=== PATIENT | male | born 1955 | race African-American/Black ===

== ENCOUNTER 2018-05-22 13:19 | Inpatient (IN) | payer OTHER ==
[~2018-05-22] VITALS: Ht 170.2 cm; Wt 99.4 kg
[~2018-05-22 13:19] MED LIST: AUGMENTIN 875-1 EACH PO; LOPRESSOR PO; MAG-OXIDE400 MG PO; NORCO 5-325 TA1 EACH PO; NORVASC 5 MG TAB5 MG PO; OMEPRAZOLE PO; ONDANSETRON HCL4 M2 PO; TESSALON PERLE100 MG PO
[2018-05-22 13:20] VITALS: BP 117/88
[2018-05-22 13:54] LABS: URINE CLARITY DARK YELLOW; URINE COLOR YELLOW; URINE SPECIFIC GRAVITY 1.025 (1.005-1.035)
[2018-05-22 13:55] LABS: ICTOTEST (BILI CONFIRMATORY) Negative (Negative); URINE BILIRUBIN NEGATIVE (Negative); URINE BLOOD NEGATIVE (Negative); URINE GLUCOSE-RANDOM* TRACE (Negative); URINE KETONES TRACE (Negative); URINE LEUKOCYTES-REFLEX NEGATIVE (Negative); URINE NITRITE-REFLEX NEGATIVE (Negative); URINE PROTEIN (DIPSTICK) 2+ (Negative); URINE UROBILINOGEN >= 8.0 E.U./dl (0.2-1.0)
[2018-05-22 14:01] LABS: SQUAMOUS 0-3 Few /LPF (0-3)
[2018-05-22 14:02] LABS: AMORPHOUS URATES Few /LPF (None Seen); BACTERIA-REFLEX 1-9 Few /HPF (None Seen); CASTS None Seen /LPF (None Seen); URINE RBC None Seen /HPF (0-2); URINE WBC-REFLEX 0-5 Rare /HPF (0-5)
[2018-05-22 14:05] LABS: ABSOLUTE NEUTROPHILS 5.7 thou/uL (1.4-8.2); BASOPHILS 0.9 % (0.0-2.0); EOSINOPHILS 0.9 % (0.0-3.0); HEMATOCRIT 39.3 % (42.0-52.0); HEMOGLOBIN 13.3 gm/dL (14.0-18.0); LYMPHOCYTES 33.1 % (24.0-44.0); MCH 31.5 pg (26.0-34.0); MCHC 33.9 g/dL (28.0-37.0); MCV 92.7 fL (80.0-100.0); MONOCYTES 6.6 % (1.0-8.0); PLATELET COUNT 211 thou/uL (150-400); POLYS 58.5 % (36.0-66.0); RBC 4.24 mil/uL (4.50-6.00); RDW 13.9 % (10.5-14.5); WBC 9.8 thou/uL (4.0-11.0)
[2018-05-22 14:10] LABS: ANION GAP 13 mmol/L (7-16); BUN 13 mg/dL (7-18); CHLORIDE 103 mmol/L (98-107); CO2 26 mmol/L (21-32); CREATININE 1.2 mg/dL (0.7-1.3); GLUCOSE 120 mg/dL (74-106); SODIUM 142 mmol/L (136-145)
[2018-05-22 14:13] LABS: CALCIUM 5.7 mg/dL (8.5-10.1); POTASSIUM 2.9 mmol/L (3.5-5.1)
[2018-05-22 14:19] LABS: DIRECT BILIRUBIN 0.4 mg/dL (<0.1-0.3); SGOT 25 U/L (15-37); SGPT 27 U/L (30-65); TOTAL BILIRUBIN 1.7 mg/dL (<0.1-1.0); TROPONIN-I <0.06 ng/mL (<0.06)
[2018-05-22 15:20] VITALS: BP 112/88
[2018-05-22 15:41] VITALS: BP 113/86
[2018-05-22 15:59] LABS: CHOLESTEROL 173 mg/dL (<200); HDL CHOLESTEROL 38 mg/dL (>40); LDL CHOLESTEROL 124 mg/dL (<100); TC:HDL 4.6 Ratio (Not establshd); TRIGLYCERIDE 56 mg/dL (<150); VLDL 11 mg/dL (<40)
[2018-05-22 16:00] VITALS: BP 107/90
[2018-05-22 19:45] LABS: POTASSIUM 2.6 mmol/L (3.5-5.1)
[2018-05-22 19:46] LABS: MAGNESIUM 0.7 mg/dL (1.8-2.4)
[2018-05-22 20:33] VITALS: BP 133/90
[2018-05-23] VITALS (8 sets, daily range): BP systolic 98–132; BP diastolic 70–90
[2018-05-23 02:15] LABS: CREATININE 1.1 mg/dL (0.7-1.3); MAGNESIUM 1.7 mg/dL (1.8-2.4); POTASSIUM 3.5 mmol/L (3.5-5.1)
[2018-05-23 07:41] LABS: CALCIUM 6.2 mg/dL (8.5-10.1); CREATININE 1.1 mg/dL (0.7-1.3); MAGNESIUM 1.5 mg/dL (1.8-2.4); POTASSIUM 3.2 mmol/L (3.5-5.1)
--- NOTE | 2018-05-23 08:49 | EKG ---
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 : 1955 Requested By: Jadiel Rhoades Order Number: [id number] MD: Juan David Singh Measurements Intervals [place] Rate: 133 P: [place]: QRS: -40 QRSD: 83 T: -69 QT: 357 QTc: 532 Interpretive Statements Atrial fibrillation Left anterior fascicular block Abnormal T, consider ischemia, diffuse leads Compared to ECG 03/01/2016 22:46:[address] and T wave abnormality is new atrial fibrillation has replaced sinus rhythm Electronically Signed On 05-23-2018 8:49:26 PRINCIPAL TRAINER by Juan David Singh [email or web address] <ELECTRONICALLY SIGNED> By: Juan David Singh MD, [facility] 05/23/18 0849 1355 1355 Juan David Singh MD, [facility] /EPI
[2018-05-23 13:15] LABS: MAGNESIUM 1.5 mg/dL (1.8-2.4); POTASSIUM 3.7 mmol/L (3.5-5.1)
[2018-05-23 13:23] LABS: CALCIUM 6.3 mg/dL (8.5-10.1); CREATININE 1.2 mg/dL (0.7-1.3); PHOSPHORUS 2.8 mg/dL (2.5-4.9)
[2018-05-24 04:13] VITALS: BP 114/95
[2018-05-24 04:38] LABS: CALCIUM 6.7 mg/dL (8.5-10.1); DIRECT BILIRUBIN 0.4 mg/dL (<0.1-0.3); PHOSPHORUS 2.8 mg/dL (2.5-4.9); POTASSIUM 4.2 mmol/L (3.5-5.1); TOTAL BILIRUBIN 1.9 mg/dL (<0.1-1.0); TOTAL PROTEIN 6.5 g/dL (6.4-8.2)
[2018-05-24 07:15] VITALS: BP 123/86
[2018-05-24 08:34] VITALS: BP 123/86
[2018-05-24 16:23] VITALS: BP 139/96
[2018-05-24 19:18] VITALS: BP 132/91
[2018-05-24 23:48] VITALS: BP 141/96
[2018-05-25 04:21] LABS: CALCIUM 7.5 mg/dL (8.5-10.1)
[2018-05-25 04:36] VITALS: BP 117/81
[2018-05-25 04:49] LABS: ABSOLUTE NEUTROPHILS 7.1 thou/uL (1.4-8.2); BASOPHILS 0.7 % (0.0-2.0); EOSINOPHILS 1.3 % (0.0-3.0); HEMOGLOBIN 13.6 gm/dL (14.0-18.0); LYMPHOCYTES 19.2 % (24.0-44.0); MCH 32.4 pg (26.0-34.0); MCHC 34.1 g/dL (28.0-37.0); MCV 95.1 fL (80.0-100.0); MONOCYTES 7.2 % (1.0-8.0); PLATELET COUNT 218 thou/uL (150-400); POLYS 71.6 % (36.0-66.0); RBC 4.21 mil/uL (4.50-6.00); WBC 9.9 thou/uL (4.0-11.0)
[2018-05-25 06:02] LABS: LARGE PLATELETS FEW
--- NOTE | 2018-05-25 14:53 | CATHLAB ---
[facility] [address] [place] [address] INVASIVE PROCEDURE REPORT Name: CHESTER HOFFMAN Room #: 213-P ADM IN M.R.#: [id number] Admission: 05/22/18 Attend Phys: Ian Samano Discharge: Date of : 53 Date of Service: 05/25/18 1452 Report #: [id number] THIS REPORT FOR: //name// APPROVED REPORT Study performed: 05/25/2018 08:09:04 Patient Details Patient Status: In-Patient Room #: The patient is a 63 year-old male Event Personnel Frank Cardozo Asphalt Blender, Ro Gore RN RN, Sana Guzman RT(R)() Rogelio Harley Roberta Monitor Procedures Performed Art Access - R femoral artery* 61707 Initial Mod Sed Same Phys/QHP Gr5y 053506 38306 Mod Sed Same Phys/QHP Ea 982696 Left Heart Cath w/or w/o Coronaries [id number] LHC BMS Revasc Grafts Single RCA [id number] BMREVSVGSG Hemostasis w/ Mynx Indication Atrial fibrillation, Dyspnea, CardiomyopathyPositive stress test Risk Factors Hypercholesterolemia, Hypertension, Tobacco History () Procedure Narrative The Right Groin^ was infiltrated with 1% Lidocaine subcutaneous anesthesia. A PINNACLE 4FR Sheath #[id number] sheath was inserted into the . Coronary angiography was performed using coronary diagnostic catheters. The right coronary system was accessed and visualized with a JR4 catheter. The left coronary system was accessed and visualized with a 4FR JL 5.0 #[id number] catheter. The left ventricle was accessed and visualized with a ANGLE PIG catheter. Left ventriculogram was performed in 30 degree projection. There was no hematoma. Intraoperative Conscious Sedation Sedation start time: 814 Case end Time: 919 [facility] [address] [place] [address] INVASIVE PROCEDURE REPORT Name: YASMINCHESTER Room #: 213-P [facility] IN ..#: [id number] Admission: 05/22/18 Attend Phys: Ian Samano Discharge: Date of : 53 Date of Service: 05/25/18 1452 Report #: [id number] Fentanyl 50.0 mcg Versed 1 mg Fluoro Time: 11.35 minutes Dose: DAP 93205.20 cGycm2 1804 mGy Contrast Type and Amount: Omnipaque 155 ml Coronary Angiography The patient's coronary anatomy is right dominant. Diagnostic Cath Left Main This is a patent vessel, with no flow-limiting lesions. LAD This is a moderate size caliber vessel, traversing the anterior wall and wrapping around the apex. There is a mild to moderate stenosis in the mid segment, 30-40%. Diagonal 1 This is a small-caliber vessel, with mild to moderate disease in the proximal segment, 30-40%. Diagonal 2 This is a small-caliber vessel, with mild disease proximally. Circumflex This is a moderate size caliber vessel, with a moderate stenosis in the proximal segment, 50%. OM1 This is a patent vessel, with no flow-limiting lesions. OM2 This is a small-caliber vessel, with moderate diffuse disease. Right Coronary This is a dominant vessel with severe focal lesions in the proximal and mid segments. R PDA This is a patent vessel, with no flow-limiting lesions. RPLV This is a patent vessel, with no flow-limiting lesions. Left Ventriculography The left ventricle is mildly dilated in size with decreased contractility. The left ventricular ejection fraction is estimated to be 35-40%. Hemodynamics The aortic pressure is 121/88 mmHg with a mean of 97 mmHg. The left ventricular pressure is 113/25 mmHg with a mean of mmHg. The left ventricular end diastolic pressure is 30 mmHg. PCI Technique Lesion Percutaneous coronary intervention was performed on the mid right coronary artery. The lesion stenosis prior to intervention was 85% with BOBO 3 flow. A VISTA 6FR JR 4 [place] [id number] INVASIVE PROCEDURE REPORT Name: CHESTER HOFFMAN Room #: 213-P [facility] IN ..#: [id number] Admission: 05/22/18 Attend Phys: Ian Samano Discharge: Date of : 53 Date of Service: 05/25/18 1452 Report #: [id number] #[id number] Guide Catheter was used to engage the RCA ostium. A Luge Wire .014 x 182CM #[id number] Interventional Guidewire was used to cross the lesion. BALLOON DILATION A Balloon catheter Euphora RX 2.5 x 10 #[id number] was inserted and inflated up to 12.00atm for 24seconds. Additional Inflation: 14.00atm for 20seconds. Additional Inflation: 8.00atm for 7seconds. SCRUM MASTER OF MRCA DRCA PRCA STENT DEPLOYMENT A bare metal stent INTEGRITY OTW 2.75 X 14 #[id number] was inserted and inflated up to 14.00atm for 16seconds. Repeat angiography revealed the following post-stent deployment results: THIS BMS WAS PLACED IN THE Distal RCA. 2ND BMS was placed in the mid segment of the RCA. 3.4YNX08PA DEPLOYED AT 18ATM FOR 22 SEC. 3RD BMS IN THE proximal RCA INTEGRITY 3.5X15MM 18ATM FOR 17 SEC. Final angiography reveals 0 % stenosis with BOBO 3 flow. Conclusion 1. Successful placement of 3 bare metal stents into the proximal, mid and distal segments of the RCA. 2. Mild to moderate disease in the LAD and left circumflex arteries. 3. At least moderate global cardiomyopathy. 4. Recommend aggressive risk factor management, cessation of tobacco use and antiplatelet therapy. <ELECTRONICALLY SIGNED> By: Frank Cardozo MD 05/25/181451 51 51 Frank Cardozo MD /INF
[2018-05-25 15:58] VITALS: BP 105/74
[2018-05-25 20:39] VITALS: BP 148/99
[2018-05-25 23:59] VITALS: BP 133/99
[2018-05-26 03:23] LABS: ALBUMIN 2.9 g/dL (3.4-5.0); ANION GAP 8 mmol/L (7-16); BUN 9 mg/dL (7-18); CALCIUM 8.5 mg/dL (8.5-10.1); CHLORIDE 103 mmol/L (98-107); CO2 22 mmol/L (21-32); GLUCOSE 109 mg/dL (74-106); HEMATOCRIT 41.9 % (42.0-52.0); HEMOGLOBIN 13.8 gm/dL (14.0-18.0); MCH 31.5 pg (26.0-34.0); MCV 95.5 fL (80.0-100.0); POTASSIUM 4.6 mmol/L (3.5-5.1); RBC 4.38 mil/uL (4.50-6.00); RDW 14.1 % (10.5-14.5); SGOT 17 U/L (15-37); SGPT 19 U/L (30-65); SODIUM 133 mmol/L (136-145); TOTAL BILIRUBIN 1.6 mg/dL (<0.1-1.0); TOTAL PROTEIN 7.1 g/dL (6.4-8.2); TROPONIN-I <0.06 ng/mL (<0.06); WBC 10.2 thou/uL (4.0-11.0)
[2018-05-26 04:19] VITALS: BP 129/107
--- NOTE | 2018-05-26 04:57 | EKG ---
[place] [address] [facility] [place] [address] ELECTROCARDIOGRAM REPORT Name: NORM HOFFMANOD Room #: 213-P ADM IN M.R.#: [id number] Admission: 05/22/18 Attend Phys: Ian James Discharge: Date of : 53 Report #: [id number] THIS REPORT FOR: //name// [facility] Test Date: 2018-05-25 Test Time: 10:48:02 Pat Name: CHESTER HOFFMAN Department: Room: 213 P Gender: M Direct Support Staff Member: Ev CROUCH : 1955 Requested By: Frank Cardozo Order Number: [id number] MD: Cash Clark Measurements Intervals [place] Rate: 94 P: [place]: QRS: -31 QRSD: 77 T: -78 QT: 425 QTc: 532 Interpretive Statements Atrial fibrillation Ventricular premature complex vs Kei beat Left axis deviation Non specific ST/T wave abnormalities Compared to ECG 05/22/2018 13:55:39 Ventricular premature complex(es) now present Electronically Signed On 05-26-2018 4:57:24 MILK ROUTE SUPERVISOR by Cash Clark [email or web address] <ELECTRONICALLY SIGNED> By: Cash Clark MD 05/26/18 0457 1048 1048 Cash Clark MD /EPI
[2018-05-26] MEDS ORDERED: ADULT ASPIRIN R81 MG PO (08:38)
--- NOTE | 2018-05-27 16:23 | 2DMMODE ---
[facility] [place] [address] 2 D/M-MODE ECHOCARDIOGRAM Name: CHESTER HOFFMAN Room #: 213-P [facility] IN M.R.#: [id number] Admission: 05/22/18 Attend Phys: Ian Samano Discharge: 05/26/18 Date of : 53 Date of Service: 05/23/18 1109 Report #: [id number] THIS REPORT FOR: //name// EXAM: Comprehensive 2D, Doppler, and color-flow Echocardiogram Patient Location: Echo lab Room #: 213 Status: routine BSA: 2.19 HR: 93 bpm BP: 114/77 mmHg Rhythm: Atrial Fibrillation Other Information Study Quality: Good Indications Atrial Fibrillation Hx: HTN, Tobacco and ETOH abuse. 2D Dimensions RVDd: 41.20 mm IVSd: 10.52 (7-11mm) LVOT Diam: 20.94 (18-24mm) LVDd: 55.07 mm PWd: 10.96 (7-11mm) Ascending Ao: 35.75 (22-36mm) LVDs: 44.58 (25-40mm) Aortic Root: 39.23 mm Volumes Left Atrial Volume (Systole) Single Plane 4CH: 84.03 mL Single Plane 2CH: 89.83 mL LA ESV Index: 42.00 mL/m2 Aortic Valve AoV Peak Brandan.: 0.98 m/s AO Peak Gr.: 4.14 mmHg LVOT Max P.74 mmHg LVOT Max V: 0.82 m/s JAZMÍN Vmax: 2.87 cm2 Mitral Valve MV Decel. Time: 171.12 ms MV E Max Brandan.: 0.90 m/s Pulmonary Valve PV Peak Brandan.: 0.73 m/s PV Peak Gr.: 2.16 mmHg Tricuspid Valve TR Peak Brandan.: 2.54 m/s RAP Estimate: 10.00 mmHg TR Peak Gr.: 25.95 mmHg [facility] [address] [place] [place] [address] 2 D/M-MODE ECHOCARDIOGRAM Name: CHESTER HOFFMAN Room #: 213-P [facility] IN M.R.#: [id number] Admission: 05/22/18 Attend Phys: Ian Samano Discharge: 05/26/18 Date of : 53 Date of Service: 05/23/18 1109 Report #: [id number] PA Pressure: 36.00 mmHg Left Ventricle The left ventricle is normal size. There is normal left ventricular wall thickness. Left ventricular systolic function is mild to moderately decreased. LVEF is 40-45%. This study is not technically sufficient to allow evaluation of the LV diastolic function due to atrial fibrillation. Right Ventricle The right ventricle is normal size. Right ventricular systolic function is mild to moderately reduced. Atria Left atrium is moderately dilated. Right atrium is moderately dilated. Aortic Valve The aortic valve is normal in structure. Mild aortic regurgitation. There is no aortic valvular stenosis. Mitral Valve The mitral valve is normal in structure. Moderate mitral regurgitation. Tricuspid Valve The tricuspid valve is normal in structure. Moderate tricuspid regurgitation. Estimated PAP 35-40mmHg. Pulmonic Valve The pulmonary valve is normal in structure. Mild to moderate pulmonic regurgitation. Great Vessels Aortic root is mildly dilated at 3.9cm. The ascending aorta is normal in size. IVC is dilated and collapses <50% with inspiration. Pericardium There is no pericardial effusion. <Conclusion> Left ventricular systolic function is mild to moderately decreased. LVEF is 40-45%. Both atria are moderately dilated. The aortic valve is normal in structure. Mild aortic regurgitation, no stenosis The mitral valve is normal in structure. Moderate mitral regurgitation. Moderate tricuspid regurgitation. Estimated pulmonary artery pressure of [facility] [address] [place] [address] 2 D/M-MODE ECHOCARDIOGRAM Name: CHESTER HOFFMAN Room #: 213-P [facility] IN M.R.#: [id number] Admission: 05/22/18 Attend Phys: Ian Samano Discharge: 05/26/18 Date of : 53 Date of Service: 05/23/18 1109 Report #: [id number] 35-40mmHg. There is no pericardial effusion. <ELECTRONICALLY SIGNED> By: Juan David Singh MD, [facility] 05/27/18 1623 1109 0842 Juan David Singh MD, [facility] /
== END 2018-05-26 06:00 | disposition home or self-care (01) | DRG 248 ==
LOC: ER 13:19 → EROBS 15:13 → 2N 15:13
PROVIDERS: Emergency Medicine; Internal Medicine Cardiovascular Disease; Nurse Practitioner; Nurse Practitioner Acute Care; ADMIT Hospitalist
PROC: B2111ZZ Fluoroscopy of Multiple Coronary Arteries using Low Osmolar Contrast (ICD-10-PCS; principal; 2018-05-25)
PROC: 02703FZ Dilation of Coronary Artery, One Artery with Three Intraluminal Devices, Percutaneous Approach (ICD-10-PCS; principal; 2018-05-25)
PROC: B2151ZZ Fluoroscopy of Left Heart using Low Osmolar Contrast (ICD-10-PCS; principal; 2018-05-25)
PROC: 4A023N7 Measurement of Cardiac Sampling and Pressure, Left Heart, Percutaneous Approach (ICD-10-PCS; principal; 2018-05-25)
DX: I25.10 Atherosclerotic heart disease of native coronary artery without angina pectoris (principal); E43 Unspecified severe protein-calorie malnutrition; I42.9 Cardiomyopathy, unspecified; E87.8 Other disorders of electrolyte and fluid balance, not elsewhere classified; I10 Essential (primary) hypertension; E87.6 Hypokalemia; I48.91 Unspecified atrial fibrillation; E83.51 Hypocalcemia; E83.42 Hypomagnesemia; F17.210 Nicotine dependence, cigarettes, uncomplicated; K21.9 Gastro-esophageal reflux disease without esophagitis; Z53.21 Procedure and treatment not carried out due to patient leaving prior to being seen by health care provider; K31.84 Gastroparesis; Z90.81 Acquired absence of spleen; Z90.49 Acquired absence of other specified parts of digestive tract; Z68.34 Body mass index [BMI] 34.0-34.9, adult; Z80.0 Family history of malignant neoplasm of digestive organs; Z71.6 Tobacco abuse counseling; Z95.5 Presence of coronary angioplasty implant and graft
CPT/HCPCS: 10081

== ENCOUNTER 2018-08-17 02:45 | Inpatient (IN) | payer OTHER ==
[2018-08-17] VITALS (7 sets, daily range): BP systolic 106–153; BP diastolic 72–98
[~2018-08-17] VITALS: Ht 180.3 cm; Wt 96.2 kg
[~2018-08-17 02:45] MED LIST changes: +ADULT ASPIRIN R81 MG PO
[2018-08-17 03:18] LABS: ABSOLUTE NEUTROPHILS 5.3 thou/uL (1.4-8.2); EOSINOPHILS 1.7 % (0.0-3.0); HEMATOCRIT 40.3 % (42.0-52.0); HEMOGLOBIN 13.5 gm/dL (14.0-18.0); LYMPHOCYTES 43.8 % (24.0-44.0); MCH 30.3 pg (26.0-34.0); MCHC 33.6 g/dL (28.0-37.0); MCV 90.2 fL (80.0-100.0); MONOCYTES 6.1 % (1.0-8.0); PLATELET COUNT 206 thou/uL (150-400); POLYS 47.4 % (36.0-66.0); RBC 4.46 mil/uL (4.50-6.00); RDW 14.8 % (10.5-14.5); WBC 12.1 thou/uL (4.0-11.0)
[2018-08-17 03:24] LABS: ANION GAP 13 mmol/L (7-16); BUN 12 mg/dL (7-18); CALCIUM 6.4 mg/dL (8.5-10.1); CHLORIDE 102 mmol/L (98-107); CO2 25 mmol/L (21-32); CREATININE 1.4 mg/dL (0.7-1.3); GLUCOSE 121 mg/dL (74-106); POTASSIUM 3.3 mmol/L (3.5-5.1); SODIUM 140 mmol/L (136-145)
[2018-08-17 03:32] LABS: TROPONIN-I <0.06 ng/mL (<0.06)
[2018-08-17] MEDS ORDERED: ELIQUIS5 MG PO (03:58)
[2018-08-17] MEDS ORDERED: ATENOLOL 50MG T50 M1 PO (03:58)
--- NOTE | 2018-08-17 05:55 | NUR ---
PT ADMITED AROUND 0500 FROM ER. VSS- AFIB ON MONITOR 80-LOW 100'S CARDIZEM GTT @10 ML/HR TITRATE PER ORDERS. MAG AND POT REPLACEMENT PER ORDERS. PT STEADY ON FEET. DENIES CP, SOA, DIZZINESS, N/V. WILL CONTINUE TO MONITOR AND WITH POC.
[2018-08-17 11:03] LABS: MAGNESIUM 1.6 mg/dL (1.8-2.4); POTASSIUM 3.9 mmol/L (3.5-5.1)
--- NOTE | 2018-08-17 12:04 | 2DMMODE ---
[facility] [address] [place] [address] 2 D/M-MODE ECHOCARDIOGRAM Name: CHESTER HOFFMAN Room #: 207-P ADM IN M.R.#: [id number] ������������� Admission: 08/17/18 ������������� Attend Phys: Ruel Enamorado MD Discharge: ��� ������������� ��� Date of : 53 Date of Service: 08/17/18 1204 �� Report #: [id number] �������� ��������������������������������������������[id number] THIS REPORT FOR: //name// APPROVED REPORT Study performed: 08/17/2018 11:21:46 EXAM: Comprehensive 2D, Doppler, and color-flow Echocardiogram Patient Location: Bedside Room #: 207 Status: routine BSA: 2.16 HR: 67 bpm BP: 113/86 mmHg Rhythm: Atrial Fibrillation Other Information Study Quality: Good Indications Atrial Fibrillation CAD Cardiomyopathy Hypertension/HDD 2D Dimensions RVDd: 48.39 mm IVSd: 13.01 (7-11mm) LVOT Diam: 19.84 (18-24mm) LVDd: 59.21 mm PWd: 13.43 (7-11mm) Ascending Ao: 30.49 (22-36mm) LVDs: 52.39 (25-40mm) Aortic Root: 36.11 mm IVC: 30.00 mm Volumes Left Atrial Volume (Systole) Single Plane 4CH: 64.54 mL Single Plane 2CH: 90.77 mL LA ESV Index: 40.00 mL/m2 Aortic Valve AoV Peak Brandan.: 0.98 m/s AO Peak Gr.: 3.85 mmHg LVOT Max P.63 mmHg LVOT Max V: 0.64 m/s JAZMÍN Vmax: 2.01 cm2 Pulmonary Valve [facility] [address] [place] [address] 2 D/M-MODE ECHOCARDIOGRAM Name: CHESTER HOFFMAN Room #: 207-P ADM IN Noel.#: [id number] ������������� Admission: 08/17/18 ������������� Attend Phys: Ruel Enamorado MD Discharge: ��� ������������� ��� Date of : 53 Date of Service: 08/17/18 1204 �� Report #: [id number] �������� ��������������������������������������������[id number] PV Peak Brandan.: 0.59 m/s PV Peak Gr.: 1.39 mmHg Tricuspid Valve TR Peak Brandan.: 2.81 m/s TR Peak Gr.: 31.52 mmHg PA Pressure: 47.00 mmHg Left Ventricle Left ventricle is dilated. There is severe global hypokinesis of the left ventricle. Mild concentric left ventricular hypertrophy. Left ventricular ejection fraction is severely decreased. LVEF is 20-25%. The left ventricular diastolic function is abnormal. Right Ventricle Right ventricle is dilated. Right ventricle is mildly hypokinetic. Atria Left atrium is dilated. Right atrium is dilated. Aortic Valve The aortic valve is normal in structure. Mild aortic regurgitation. There is no aortic valvular stenosis. Mitral Valve The mitral valve is normal in structure. Moderate mitral regurgitation. No evidence of mitral valve stenosis. Tricuspid Valve The tricuspid valve is normal in structure. There is mild to moderate tricuspid regurgitation. Estimated PAP 47 mmHg. There is moderate pulmonary hypertension. Pulmonic Valve The pulmonary valve is normal in structure. Mild to moderate pulmonic regurgitation. Great Vessels The aortic root is normal in size. The inferior vena cava is dilated with no inspiratory collapse. Pericardium There is no pericardial effusion. <Conclusion> Left ventricle is dilated. [facility] [address] [place] [address] 2 D/M-MODE ECHOCARDIOGRAM Name: CHESTER HOFFMAN Room #: 207- ADM IN .R.#: [id number] ������������� Admission: 08/17/18 ������������� Attend Phys: Ruel Enamorado MD Discharge: ��� ������������� ��� Date of : 53 Date of Service: 08/17/18 120 �� Report #: [id number] �������� ��������������������������������������������[id number] Mild concentric left ventricular hypertrophy. Left ventricular ejection fraction is severely decreased. Right ventricle is dilated. Right ventricle is mildly hypokinetic. Left atrium is dilated. Right atrium is dilated. Mild aortic regurgitation. Moderate mitral regurgitation. There is mild to moderate tricuspid regurgitation. Estimated PAP 47 mmHg. There is moderate pulmonary hypertension. ��������������������������������������������� <ELECTRONICALLY SIGNED> ���������������������������������������� By: Frank Cardozo MD ��������������������������������������������� 08/17/18 1204 120 1204 Frank Cardozo MD /INF
--- NOTE | 2018-08-17 15:49 | NUR ---
VSS REMAINS IN AFIB WITH VR 80-105, PT OFF CARDIZEM GTT AND ON PO ATENOLOL FOR TODAY. LUNGS DIMINISHED, O2 SAT RA IS 95%. UP IN ROOM WITHOUT DIFFICULTY. WILL CONTINUE TO MONITER AND CARE FOR PTPER PLAN OF CARE
[2018-08-18 00:45] VITALS: BP 104/90
[2018-08-18 03:46] LABS: HEMOGLOBIN 12.4 gm/dL (14.0-18.0); MCH 30.4 pg (26.0-34.0); MCHC 33.6 g/dL (28.0-37.0); MCV 90.5 fL (80.0-100.0); RBC 4.09 mil/uL (4.50-6.00); RDW 14.7 % (10.5-14.5); WBC 9.9 thou/uL (4.0-11.0)
[2018-08-18 03:57] LABS: CALCIUM 7.1 mg/dL (8.5-10.1); CREATININE 1.3 mg/dL (0.7-1.3); POTASSIUM 3.5 mmol/L (3.5-5.1)
--- NOTE | 2018-08-18 04:36 | NUR ---
ASSUMED PT CARE AT 1900. PT A/OX4, VITAL SIGNS STABLE, ASSESSMENT CHARTED NO COMPLAINTS OF PAIN/CHEST PAIN. AFIB ON THE MONITOR. HR ELEVATED WITH ACTIVITY. RESTED WELL THROUGH THE NIGHT. PROGRESSING TOWARD PLAN OF CARE. WILL CONTINUE TO MONITOR.
[2018-08-18 04:45] VITALS: BP 124/89
[2018-08-18 08:00] VITALS: BP 128/98
--- NOTE | 2018-08-18 09:31 | EKG ---
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: TIFFANY : 1955 Requested By: Jadiel Rhoades Order Number: [id number] MD: Juan David Singh Measurements Intervals [place] Rate: 119 P: [place]: QRS: -41 QRSD: 94 T: 259 QT: 365 QTc: 514 Interpretive Statements Atrial fibrillation Left anterior fascicular block Left ventricular hypertrophy Abnormal T, consider ischemia, lateral leads Prolonged QT interval Compared to ECG 05/25/2018 10:48:02 T wave abnormality is less pronounced Electronically Signed On 08-18-2018 9:31:13 CDT by Juan David Singh [email or web address] ��������������������������������������������� <ELECTRONICALLY SIGNED> ���������������������������������������� By: Juan David Singh MD, [facility] ��������������������������������������������� 08/18/18 0931 0313 0313 Juan David Singh MD, [facility] /EPI
[2018-08-18 12:09] VITALS: BP 127/76
[2018-08-18 16:00] VITALS: BP 138/87
--- NOTE | 2018-08-18 19:25 | NUR ---
ASSUMED CARE OF PT AT SHIFT CHANGE. ASSESSMENTS CHARTED. MEDS GIVEN PER JUN. PT ALERT AND ORIENTED, VSS, NO C/O PAIN. DENIES CHEST PAIN. PT UP AD ABEL. O2 SATS WNL ON ROOM AIR, NO S/SX OF CARD OR RESP DISTRESS NOTED. AT APPROX [id number] PT WENT INTO AFIB/RVR. PROVIDER NOTIFIED. ORDERS RECEIVED TO RESTART DILT GTT AT 10, AND TO TITRATE ACCORDINGLY, WELL AMIO PO. PT HR BEGAN TO DECREASE, EVENTUALLY RETURNING BACK TO 90S, LOW 100S. PT DENIES CONCERNS AT THIS TIME. CONTINUING TO MONITOR HR. WILL CONTINUE TO FOLLOW POC.
[2018-08-18 20:34] VITALS: BP 135/88
[2018-08-19 04:47] VITALS: BP 125/92
[2018-08-19 04:56] LABS: CALCIUM 7.5 mg/dL (8.5-10.1); CREATININE 1.3 mg/dL (0.7-1.3); POTASSIUM 3.6 mmol/L (3.5-5.1)
--- NOTE | 2018-08-19 05:01 | NUR ---
ASSUMED PT CARE AT 1900. PT A/OX4, VITAL SIGNS STABLE, ASSESSMENT CHARTED. NO COMPLAINTS OF PAIN/CHEST. PT ON CARDIZEM DRIP GOING AT 5ML/HR. PT STABLE, BP CONTROLLED, HR CONTROLLED ON THE MONITOR. PT RESTED WELL THROUGH THE NIGHT. PROGRESSING TOWARD PLAN OF CARE. WILL CONTINUE TO MONITOR.
[2018-08-19 08:07] VITALS: BP 125/96
[2018-08-19] MEDS ORDERED: LIPITOR40 MG PO (12:43)
[2018-08-19] MEDS ORDERED: DEMADEX20 MG PO (12:43)
[2018-08-19] MEDS ORDERED: PACERONE 200 M200 M1 PO (12:43)
[2018-08-19] MEDS ORDERED: METOPROLOL SUCC50 MG PO (12:43)
[2018-08-19] MEDS ORDERED: MAGOX 400400 MG PO (12:43)
[2018-08-19] MEDS ORDERED: BAYER CHEWABLE81 MG PO (12:43)
[2018-08-19] MEDS ORDERED: VITAMIN B-1100 M2 PO (12:43)
[2018-08-19] MEDS ORDERED: FOLIC ACID1 MG PO (12:43)
[2018-08-19] MEDS ORDERED: UNICOMPLEX M TA1 TA1 PO (12:43)
[2018-08-19] MEDS ORDERED: COZAAR 25 MG TA25 M2 PO (12:43)
[2018-08-19 12:48] VITALS: BP 125/96
[2018-08-19] MEDS ORDERED: WORK EXCUSE (13:55)
--- NOTE | 2018-08-19 15:12 | NUR ---
ASSUMED CARE OF PT AT SHIFT CHANGE. ASSESSMETNS CHARTED. MEDS GIVNE PER JUN. PT ALERT AND ORIENTED, VSS, NO C/O PAIN, O2 SATS WNL ON ROOM AIR, NO S/SX OF CARD OR RESP DISTRESS NOTED. PT REMAINED AFIB CONTROLLED ON MONITOR. MAG REPLACED PER PROVIDER ORDERS. DC ORDERS IMPLEMENTED AND ACKNOWLEDGED. DC PAPERWORK DISCUSSED WITH PT, COMMUNICATES UNDERSTANDING. IV REMOVED, TELE REMOVED. PT LEFT UNIT AT APPROX 1510 WITH ALL BELONGINGS BY NURSING STAFF.
== END 2018-08-19 15:10 | disposition home or self-care (01) | DRG 308 ==
LOC: ER 02:45 → EROBS 04:30 → 2N 04:30
PROVIDERS: Emergency Medicine; Internal Medicine Cardiovascular Disease; Nurse Practitioner Family; ADMIT Internal Medicine
DX: I48.91 Unspecified atrial fibrillation (principal); I50.23 Acute on chronic systolic (congestive) heart failure; E44.0 Moderate protein-calorie malnutrition; E87.6 Hypokalemia; E83.42 Hypomagnesemia; I42.9 Cardiomyopathy, unspecified; F17.210 Nicotine dependence, cigarettes, uncomplicated; I25.10 Atherosclerotic heart disease of native coronary artery without angina pectoris; I11.0 Hypertensive heart disease with heart failure; F10.10 Alcohol abuse, uncomplicated; E78.5 Hyperlipidemia, unspecified; Z68.29 Body mass index [BMI] 29.0-29.9, adult; Z90.81 Acquired absence of spleen; Z90.49 Acquired absence of other specified parts of digestive tract; Z80.0 Family history of malignant neoplasm of digestive organs; Z95.5 Presence of coronary angioplasty implant and graft; Z79.82 Long term (current) use of aspirin; Z79.899 Other long term (current) drug therapy; Z71.6 Tobacco abuse counseling; Z71.41 Alcohol abuse counseling and surveillance of alcoholic
CPT/HCPCS: 10081

== ENCOUNTER → 2019-06-09 | Outpatient (CLI) | payer OTHER ==
[~2019-06-09] MED LIST changes: +ATENOLOL 50MG T50 M1 PO; +BAYER CHEWABLE81 MG PO; +COZAAR 25 MG TA25 M2 PO; +DEMADEX20 MG PO; +ELIQUIS5 MG PO; +FOLIC ACID1 MG PO; +LIPITOR40 MG PO; +MAGOX 400400 MG PO; +METOPROLOL SUCC50 MG PO; +PACERONE 200 M200 M1 PO; +UNICOMPLEX M TA1 TA1 PO; +VITAMIN B-1100 M2 PO; +WORK EXCUSE
== END ==
LOC: SJCVCIMAG 08:41
DX: R00.0 Tachycardia, unspecified (principal); I25.10 Atherosclerotic heart disease of native coronary artery without angina pectoris; I50.9 Heart failure, unspecified; I48.91 Unspecified atrial fibrillation; I10 Essential (primary) hypertension; I42.9 Cardiomyopathy, unspecified; E78.5 Hyperlipidemia, unspecified; F17.200 Nicotine dependence, unspecified, uncomplicated; Z79.899 Other long term (current) drug therapy

== ENCOUNTER → 2021-02-26 | Outpatient (CLI) | payer OTHER | LOC: SJCVC 15:08 | PROVIDERS: ATTEND Internal Medicine Cardiovascular Disease | DX: R94.31 Abnormal electrocardiogram [ECG] [EKG] (principal); I25.10 Atherosclerotic heart disease of native coronary artery without angina pectoris; I48.91 Unspecified atrial fibrillation; I42.9 Cardiomyopathy, unspecified; Z79.899 Other long term (current) drug therapy; E78.5 Hyperlipidemia, unspecified; E87.6 Hypokalemia; Z72.89 Other problems related to lifestyle ==

== ENCOUNTER → 2021-03-05 | Outpatient (CLI) | payer OTHER | LOC: SJCVCIMAG 07:14 | PROVIDERS: ATTEND Internal Medicine Cardiovascular Disease | DX: I25.9 Chronic ischemic heart disease, unspecified (principal); I25.10 Atherosclerotic heart disease of native coronary artery without angina pectoris; I10 Essential (primary) hypertension; I48.91 Unspecified atrial fibrillation; I42.9 Cardiomyopathy, unspecified; E78.5 Hyperlipidemia, unspecified; E78.00 Pure hypercholesterolemia, unspecified; F17.200 Nicotine dependence, unspecified, uncomplicated; Z79.899 Other long term (current) drug therapy; Z72.89 Other problems related to lifestyle ==

== ENCOUNTER 2021-03-12 07:54 | Observation (INO) | payer OTHER ==
[~2021-03-12] VITALS: Ht 180.3 cm; Wt 102.5 kg
[2021-03-12 08:51] VITALS: BP 142/103
[2021-03-12] MEDS ORDERED: ASA81BEC PO (09:14)
[2021-03-12] MEDS ORDERED: CLOPIDOGREL75 MG PO (12:41)
[2021-03-12] MEDS ORDERED: ROSUVASTATIN CA20 MG PO (12:41)
[2021-03-12 13:44] VITALS: BP 142/103
--- NOTE | 2021-03-12 14:07 | CATHLAB ---
[facility] [place] [address] INVASIVE PROCEDURE REPORT Name: CHETSER HOFFMAN Room #: 214-P [facility] OXANA MCallie.#: [id number] Admission: 03/12/21 Attend Phys: Frank Cardozo MD Discharge: Date of : 53 Report #: [id number] THIS REPORT FOR: cc: FAM - No family physician/PCP FAM - No family physician/PCP Frank Cardozo MD ~ APPROVED REPORT Study performed: 03/12/2021 09:55:38 Patient Details Patient Status: Out-Patient Room #: The patient is a 65 year-old male Event Personnel Frank Cardozo Nutrition Assistant, Eric Sherman RN RN, Rachel Aelxander RTR Scrub, Tae Marcelino RTR Monitor Procedures Performed Art Access - R femoral artery* Left Heart Cath w/or w/o Coronaries [id number] [facility] Place w/wo Plasty Single CIRC 740282 34821 Initial Mod Sed Same Phys/QHP Gr5y 729585 86345 Mod Sed Same Phys/QHP Ea 482699 Hemostasis w/ Mynx Indication Dyspnea, CardiomyopathyPositive stress test, Chest pain Risk Factors Hypercholesterolemia, Coronary Artery DiseaseHypertension, Tobacco History () Previous Procedures/Diagnoses Previous PCI, Previous GA Procedure Narrative The patient was brought electively to the Cardiac Catheterization Laboratory and was prepped and draped in a sterile manner. The Right Groin^ was infiltrated with 1% Lidocaine subcutaneous anesthesia. A PINNACLE 4FR Sheath #[id number] sheath was inserted into the RFA^. Coronary angiography was performed using coronary diagnostic catheters. The right coronary system was accessed and visualized with a JR4 catheter. The left coronary system was accessed and visualized with a JL4 catheter. The left ventricle was accessed and visualized with a JR4 catheter. Left ventricular/Aortic Valve gradient assessed [facility] [place] [address] INVASIVE PROCEDURE REPORT Name: CHESTER HOFFMAN Room #: 214-P [facility]#: [id number] Admission: 03/12/21 Attend Phys: Frank Cardozo MD Discharge: Date of : 53 Report #: [id number] via catheter pullback. Left ventriculogram was performed in 30 degree projection. Closure device was deployed with a Fr MYNXGRIP 6/7F #[id number]. The patient tolerated the procedure well and there were no complications associated with the procedure. There was no hematoma. Intraoperative Conscious Sedation Sedation start time: 10:14 Case end Time: 11:02 Fentanyl 50 mcg Versed 1 mg Fluoro Time: 7.90 minutes Dose: DAP 06384.60 cGycm2 2969 mGy Contrast Type and Amount: Visipaque 210 ml Coronary Angiography The patient's coronary anatomy is right dominant. Diagnostic Cath Left Main The left main artery is a large-caliber vessel, appears angiographically normal. LAD The LAD is a moderate-sized caliber vessel, traverses the anterior wall and wraps around the apex. There is mild diffuse disease in the proximal segment, 30%. Diagonal 1 There is a moderate-sized caliber vessel with a moderate stenosis in the ostium and proximal segment, 40 to 50%. Diagonal 2 This is a small to moderate-sized caliber vessel, with mild disease proximally. Circumflex There is a severe occlusion in the proximal segment, 80%. Supplies 1 OM vessel at the distal segment. OM1 This is a moderate-sized caliber vessel with a mild to moderate ostial stenosis, 30 to 40%. Right Coronary The RCA is dominant vessel with patent stents in the proximal, mid and distal segments. There is mild to moderate diffuse disease just before the crux, 30 to 40%. R PDA There is a moderate-sized caliber vessel, patent with no flow-limiting lesions. RPLV There is a moderate-sized caliber vessel, patent with no flow-limiting lesions. Left Ventriculography Left Ventriculography was not performed. Ejection Fraction was 45% based off patient's Nuclear Cardiac Stress Test. An LVEDP was measured and there is no gradient across the outflow tract. [facility] [address] [place] [address] INVASIVE PROCEDURE REPORT Name: CHESTER HOFFMAN Room #: 214-P [facility] M.R.#: [id number] Admission: 03/12/21 Attend Phys: Frank Cardozo MD Discharge: Date of : 53 Report #: [id number] Hemodynamics The aortic pressure is 150/103 mmHg with a mean of 121 mmHg. The left ventricular pressure is 139/14 mmHg with a mean of mmHg. The left ventricular end diastolic pressure is 24 mmHg. PCI Technique Lesion Anticoagulation was achieved with Angiomax. Percutaneous coronary intervention was performed on the proximal circumflex artery segment. The lesion stenosis prior to intervention was 80% with BOBO 3 flow. A VISTA 6FR XB 3.5 #[id number] Guide Catheter was used to engage the CIRCUMFLEX ostium. A Luge Wire .014 x 182CM #[id number] Interventional Guidewire was used to cross the lesion. BALLOON DILATION A Balloon catheter Euphora RX 2.25 x 10 #[id number] was inserted and inflated up to 10.00atm for 16seconds. Additional Inflation: 10.00atm for 12seconds. Additional Inflation: 14.00atm for 11seconds. ADDITIONAL INFLATION: 14 muna for 12 sec/min. STENT DEPLOYMENT A stent RESOLUTE CHARO RX 2.75 X 22 #[id number] was inserted and inflated up to 10.00atm for 17seconds. Additional Inflation: 14.00atm for 16seconds. POST STENT DEPLOYMENT BALLOON DILATION A Balloon catheter Euphora NC RX 3.0 x 12 #[id number] was inserted and inflated up to 14.00atm for 18seconds. Additional Inflation: 18.00atm for 17seconds. Final angiography reveals 0 % stenosis with BOBO 3 flow. Conclusion 1. PCI performed with placement of a drug-eluting stent into the proximal left circumflex artery. 2. There are patent stents in a dominant RCA. 3. There is mild to moderate disease in the proximal LAD and ostial OM1. 4. There is mild LV dysfunction. 5. Recommend dual antiplatelet therapy and aggressive risk factor management. <ELECTRONICALLY SIGNED> By: Frank Cardozo MD 03/12/211405 05 05 Frank Cardozo MD /INF
[2021-03-12] MEDS ORDERED: PRILOSEC OTC20 MG PO (14:10)
--- NOTE | 2021-03-12 15:43 | EKG ---
[address] [address] ELECTROCARDIOGRAM REPORT Name: CHESTER HOFFMAN Room #: 214-P [facility].#: [id number] Admission: 03/12/21 Attend Phys: Frank Cardozo MD Discharge: Date of : 53 Report #: [id number] [facility] Test Date: 2021-03-12 Test Time: 08:25:49 Pat Name: CHESTER HOFFMAN Department: Room: Gender: M Mail Sorter: JANELL : 1955 Requested By: Frank Cardozo Order Number: [id number] MD: Raffi Taylor Measurements Intervals [place] Rate: 102 P: [place]: QRS: -29 QRSD: 80 T: -29 QT: 373 QTc: 486 Interpretive Statements Atrial fibrillation Abnormal R-wave progression, early transition Left ventricular hypertrophy Nonspecific T abnormalities, inferior leads Compared to ECG 08/17/2018 03:13:50 Left anterior fascicular block no longer present Possible ischemia no longer present Prolonged QT interval no longer present T-wave abnormality still present Electronically Signed On 03-12-2021 15:43:26 SURGICAL MANAGER by Raffi Taylor [email or web address] <ELECTRONICALLY SIGNED> By: Raffi Taylor MD, FACC 03/12/21 1543 4 4 Raffi Taylor MD, [facility] /EPI
--- NOTE | 2021-03-12 15:45 | EKG ---
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 : 1955 Requested By: Frank Cardozo Order Number: [id number] MD: Raffi Taylor Measurements Intervals [place] Rate: 84 P: [place]: QRS: -34 QRSD: 82 T: -26 QT: 386 QTc: 457 Interpretive Statements Atrial fibrillation Abnormal R-wave progression, early transition Left ventricular hypertrophy Nonspecific T abnormalities, inferior leads Compared to ECG 03/12/2021 08:25:49 No significant changes Electronically Signed On 03-12-2021 15:45:02 [facility] NURSE PRACTITIONER by Raffi Taylor [email or web address] <ELECTRONICALLY SIGNED> By: Raffi Taylor MD, [facility] 03/12/21 1545 1118 17 Raffi Taylor MD, FACC /EPI
[2021-03-12 19:49] VITALS: BP 130/82
[2021-03-12 23:54] VITALS: BP 133/102
[2021-03-13] VITALS: BP 132/95
[2021-03-13 03:07] VITALS: BP 144/97
[2021-03-13 03:37] LABS: HEMATOCRIT 39.1 % (42.0-52.0); HEMOGLOBIN 13.1 gm/dL (14.0-18.0); MCH 30.9 pg (26.0-34.0); MCHC 33.5 g/dL (28.0-37.0); MCV 92.1 fL (80.0-100.0); RBC 4.25 mil/uL (4.50-6.00); RDW 13.9 % (10.5-14.5); WBC 8.5 thou/uL (4.0-11.0)
[2021-03-13 04:38] LABS: ALBUMIN 2.8 g/dL (3.4-5.0); CALCIUM 6.5 mg/dL (8.5-10.1); CREATININE 1.2 mg/dL (0.7-1.3); POTASSIUM 3.6 mmol/L (3.5-5.1); TOTAL PROTEIN 6.7 g/dL (6.4-8.2)
[2021-03-13 07:34] VITALS: BP 157/112
[2021-03-13] MEDS ORDERED: CLOPIDOGREL75 MG PO (09:01)
--- NOTE | 2021-03-13 09:11 | EKG ---
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: FSCHWALTROY : 1955 Requested By: Frank Cardozo Order Number: [id number] MD: Juan David Singh Measurements Intervals [place] Rate: 91 P: [place]: QRS: -34 QRSD: 83 T: -42 QT: 386 QTc: 475 Interpretive Statements Atrial fibrillation Left ventricular hypertrophy Nonspecific T abnormalities, inferior and lateral leads Compared to ECG 03/12/2021 11:18:31 No significant changes Electronically Signed On 03-13-2021 9:11:36 INFECTION CONTROL PRACTITIONER by Juan David Singh [email or web address] <ELECTRONICALLY SIGNED> By: Juan David Singh MD, [facility] 03/13/2111 1 Juan David Singh MD, FACC /EPI
[2021-03-13 11:00] VITALS: BP 154/116
[2021-03-13 14:53] VITALS: BP 142/103
== END 2021-03-13 15:30 | disposition home or self-care (01) ==
LOC: CATH 07:54 → 2N 13:20 → CATH 13:21 → 2N 13:21
PROVIDERS: ADMIT Internal Medicine Cardiovascular Disease; ATTEND Internal Medicine Cardiovascular Disease
DX: I25.110 Atherosclerotic heart disease of native coronary artery with unstable angina pectoris (principal); I48.91 Unspecified atrial fibrillation; I42.8 Other cardiomyopathies; E78.5 Hyperlipidemia, unspecified; I11.0 Hypertensive heart disease with heart failure; I50.20 Unspecified systolic (congestive) heart failure; F17.210 Nicotine dependence, cigarettes, uncomplicated; Z79.82 Long term (current) use of aspirin; Z79.899 Other long term (current) drug therapy
CPT/HCPCS: 10797

== ENCOUNTER 2021-03-24 22:52 | Emergency (ER) | payer OTHER ==
[~2021-03-24] VITALS: Ht 180.3 cm; Wt 99.8 kg
[~2021-03-24 22:52] MED LIST changes: +ASA81BEC PO; +CLOPIDOGREL75 MG PO; +PRILOSEC OTC20 MG PO; +ROSUVASTATIN CA20 MG PO
[2021-03-25] MEDS ORDERED: DOXYCYCLINE 10100 MG PO (01:22)
[2021-03-25 01:36] VITALS: BP 146/93
== END 2021-03-25 01:36 | disposition home or self-care (01) ==
LOC: ER 22:52
DX: J18.9 Pneumonia, unspecified organism (principal); Z20.822 Contact with and (suspected) exposure to COVID-19; R05.9 Cough, unspecified; I10 Essential (primary) hypertension; I42.9 Cardiomyopathy, unspecified; I48.91 Unspecified atrial fibrillation; F17.210 Nicotine dependence, cigarettes, uncomplicated; Z90.81 Acquired absence of spleen; Z90.49 Acquired absence of other specified parts of digestive tract; Z79.82 Long term (current) use of aspirin; Z79.891 Long term (current) use of opiate analgesic; Z79.899 Other long term (current) drug therapy

== ENCOUNTER 2021-04-02 11:47 | Observation (INO) | payer OTHER ==
[~2021-04-02] VITALS: Ht 180.3 cm; Wt 102.1 kg
[~2021-04-02 11:47] MED LIST changes: +DOXYCYCLINE 10100 MG PO
[2021-04-02 13:59] LABS: ABSOLUTE NEUTROPHILS 5.6 thou/uL (1.4-8.2); BASOPHILS 0.6 % (0.0-2.0); EOSINOPHILS 0.7 % (0.0-3.0); HEMATOCRIT 40.7 % (42.0-52.0); HEMOGLOBIN 13.3 gm/dL (14.0-18.0); LYMPHOCYTES 32.4 % (24.0-44.0); MCH 30.4 pg (26.0-34.0); MCHC 32.6 g/dL (28.0-37.0); MONOCYTES 8.1 % (1.0-8.0); PLATELET COUNT 212 thou/uL (150-400); POLYS 58.2 % (36.0-66.0); RBC 4.37 mil/uL (4.50-6.00); RDW 14.2 % (10.5-14.5); WBC 9.6 thou/uL (4.0-11.0)
[2021-04-02 14:02] LABS: CALCIUM 6.4 mg/dL (8.5-10.1); CREATININE 1.3 mg/dL (0.7-1.3); POTASSIUM 3.3 mmol/L (3.5-5.1)
[2021-04-02 14:11] LABS: ALBUMIN 2.9 g/dL (3.4-5.0); DIRECT BILIRUBIN 0.2 mg/dL (<0.1-0.2); TOTAL BILIRUBIN 1.4 mg/dL (0.2-1.0); TOTAL PROTEIN 7.1 g/dL (6.4-8.2)
[2021-04-02 20:41] LABS: MAGNESIUM 0.3 mg/dL (1.8-2.4)
[2021-04-02 20:55] VITALS: BP 135/82
[2021-04-02 21:42] VITALS: BP 135/82
--- NOTE | 2021-04-02 22:41 | NUR ---
admitted to room. he is calm and cooperative. denies pain. stated that he is aving numbness from elbows down on both arms and his face is numb. encouraged to call for assist, if dizzy or weakness. denies pain. 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 oriented to room and surroundings. all medications left at home.
[2021-04-02 23:45] VITALS: BP 134/96
[2021-04-03 03:47] VITALS: BP 142/86
[2021-04-03 05:25] LABS: CALCIUM 6.4 mg/dL (8.5-10.1); CREATININE 1.3 mg/dL (0.7-1.3); POTASSIUM 3.3 mmol/L (3.5-5.1)
[2021-04-03 08:28] VITALS: BP 137/99
--- NOTE | 2021-04-03 08:38 | EKG ---
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 : 1955 Requested By: Marcelo Whitehead Order Number: [id number] MD: Juan David Singh Measurements Intervals [place] Rate: 116 P: [place]: QRS: -42 QRSD: 87 T: -71 QT: 342 QTc: 476 Interpretive Statements Atrial fibrillation Left anterior fascicular block Abnormal R-wave progression, early transition Left ventricular hypertrophy Abnormal T, consider ischemia, lateral leads Compared to ECG 03/13/2021 07:12:19 T-wave abnormality still present Electronically Signed On 04-03-2021 8:37:58 ENGRAVER ORNAMENTAL DESIGN by Juan David Singh [email or web address] <ELECTRONICALLY SIGNED> By: Juan David Singh MD, [facility] 04/03/21 0837 1207 1207 Juan David Singh MD, [facility] /EPI
[2021-04-03 10:52] LABS: POTASSIUM 3.3 mmol/L (3.5-5.1)
[2021-04-03 11:02] VITALS: BP 129/95
--- NOTE | 2021-04-03 12:25 | 2DMMODE ---
[facility] [place] [address] [place] [address] 2 D/M-MODE ECHOCARDIOGRAM Name: CHESTER HOFFMAN Room #: 364-P ADM IN M.R.#: [id number] Admission: 04/02/21 Attend Phys: Demar Islas MD Discharge: Date of : 53 Report #: [id number] THIS REPORT FOR: cc: FAM - No family physician/PCP FAM - No family physician/PCP Frank Cardozo MD ~ APPROVED REPORT Study performed: 04/03/2021 11:28:54 EXAM: Comprehensive 2D, Doppler, and color-flow Echocardiogram Patient Location: Bedside Room #: 364 Status: routine BSA: 2.22 HR: 86 bpm BP: 129/95 mmHg Rhythm: Atrial Fibrillation Other Information Study Quality: Good Indications Afib. Hx: CAD, PCI, mixed cardiomyopathy, Tob and ETOH abuse. 2D Dimensions IVSd: 11.86 (7-11mm) LVDd: 56.98 mm PWd: 12.12 (7-11mm) Ascending Ao: 37.34 (22-36mm) LVDs: 47.19 (25-40mm) Left Atrium: 45.96 (27-40mm) Aortic Root: 39.93 mm Volumes Left Atrial Volume (Systole) Single Plane 4CH: 104.74 mL Single Plane 2CH: 95.22 mL LA ESV Index: 49.00 mL/m2 Aortic Valve AoV Peak Brandan.: 1.17 m/s AO Peak Gr.: 5.50 mmHg LVOT Max P.52 mmHg LVOT Max V: 0.79 m/s [facility] [address] [place] [address] 2 D/M-MODE ECHOCARDIOGRAM Name: CHESTER HOFFMAN Room #: 364-P ADM IN M.R.#: [id number] Admission: 04/02/21 Attend Phys: Jessica Gutierrez Discharge: Date of : 53 Report #: [id number] Mitral Valve MV Decel. Time: 140.37 ms MV E Max Brandan.: 1.03 m/s Pulmonary Valve PV Peak Brandan.: 0.88 m/s PV Peak Gr.: 3.12 mmHg Tricuspid Valve TR Peak Brandan.: 2.84 m/s RAP Estimate: 12.00 mmHg TR Peak Gr.: 32.36 mmHg PA Pressure: 44.00 mmHg Left Ventricle The left ventricle is normal size. There is hypokinesis of the inferior wall. Mild concentric left ventricular hypertrophy. Left ventricular systolic function is mild to moderately decreased. LVEF is 40-45%. This study is not technically sufficient to allow evaluation of the LV diastolic function due to atrial fibrillation. Right Ventricle The right ventricle is normal size. The right ventricular systolic function is normal. Atria Left atrium is severely dilated. Right atrium is moderately dilated. Aortic Valve The aortic valve is normal in structure. Mild aortic regurgitation. There is no aortic valvular stenosis. Mitral Valve The mitral valve is normal in structure. Moderate mitral regurgitation. Tricuspid Valve The tricuspid valve is normal in structure. Mild to moderate tricuspid regurgitation. Estimated PAP is 40 mmHg. Pulmonic Valve The pulmonary valve is normal in structure. Mild to moderate pulmonic regurgitation. Great Vessels Aortic root is mildly dilated (4.0cm). The ascending aorta is normal [facility] [address] [place] [address] 2 D/M-MODE ECHOCARDIOGRAM Name: CHESTER HOFFMAN Room #: 364-P [facility].#: [id number] Admission: 04/02/21 Attend Phys: Jessica Gutierrez Discharge: Date of : 53 Report #: [id number] in size. IVC is dilated and collapses <50% with inspiration. Pericardium There is no pericardial effusion. <Conclusion> The left ventricle is normal size. Left ventricular systolic function is mild to moderately decreased. LVEF is 40-45%. There is hypokinesis of the inferior wall. The right ventricle is normal size. Left atrium is severely dilated. Mild aortic regurgitation. Moderate mitral regurgitation. Mild to moderate tricuspid regurgitation. Estimated PAP is 40 mmHg. <ELECTRONICALLY SIGNED> By: Frank Cardozo MD 04/03/21 1224 1224 1224 Frank Cardozo MD /INF
[2021-04-03] MEDS ORDERED: CARDIZEM CD 18180 M3 PO (13:40)
[2021-04-03] MEDS ORDERED: MAGNESIUM400 MG PO (13:40)
[2021-04-03] MEDS ORDERED: K-TAB ER20 MEQ PO (13:40)
[2021-04-03 16:07] VITALS: BP 132/93
[2021-04-03 17:32] LABS: MAGNESIUM 1.6 mg/dL (1.8-2.4)
[2021-04-03 18:16] VITALS: BP 132/93
--- NOTE | 2021-04-03 19:42 | NUR ---
RN ASSUMED PT'S CARE AT 0700-1900PM, PT IS A&OX4, PT'S VS ARE STABLE, PT'S HR HAS CONTROLED AT 80-90, PT DENIES PAIN AND SOB, PT'S POTTASSIUM AND MAGNESSIUM HAVE REPLACEMENT BY IV AND PO, RN HAS CALLED DR TO REPORTED PT'S 1700PM LAB RESULTS, POTASSUIM 4.0, MAGNESSIUM 1.6, RN RECEIVED ORDER TO DC PT TO HOME, PT AND PT'S FAMILY UNDERSTAND DC TEACHING WELL , PT'S FAMILY OICK UP PT TO HME AT 1900PM.
== END 2021-04-03 18:50 | disposition home or self-care (01) ==
LOC: ER 11:47 → 3W 16:44 → EROBS 16:44 → 3W 16:44
PROVIDERS: Nurse Practitioner Family; Student in an Organized Health Care Education/Training Program; ADMIT Hospitalist; ATTEND Hospitalist
DX: I48.20 Chronic atrial fibrillation, unspecified (principal); Z20.822 Contact with and (suspected) exposure to COVID-19; I10 Essential (primary) hypertension; E78.5 Hyperlipidemia, unspecified; F10.20 Alcohol dependence, uncomplicated; I25.10 Atherosclerotic heart disease of native coronary artery without angina pectoris; E87.6 Hypokalemia; R53.83 Other fatigue; I42.8 Other cardiomyopathies; F17.210 Nicotine dependence, cigarettes, uncomplicated; Y90.9 Presence of alcohol in blood, level not specified; Z98.890 Other specified postprocedural states; Z90.49 Acquired absence of other specified parts of digestive tract; Z82.49 Family history of ischemic heart disease and other diseases of the circulatory system; Z79.899 Other long term (current) drug therapy
CPT/HCPCS: 10879

== ENCOUNTER 2021-04-18 21:38 | Inpatient (IN) | payer OTHER ==
[~2021-04-18] VITALS: Ht 177.8 cm; Wt 90.7 kg
[~2021-04-18 21:38] MED LIST changes: +CARDIZEM CD 18180 M3 PO; +K-TAB ER20 MEQ PO; +MAGNESIUM400 MG PO
[2021-04-18 22:55] LABS: ABSOLUTE NEUTROPHILS 6.6 thou/uL (1.4-8.2); BASOPHILS 0.9 % (0.0-2.0); EOSINOPHILS 1.3 % (0.0-3.0); HEMATOCRIT 37.5 % (42.0-52.0); HEMOGLOBIN 12.5 gm/dL (14.0-18.0); LYMPHOCYTES 24.1 % (24.0-44.0); MCH 30.7 pg (26.0-34.0); MCHC 33.4 g/dL (28.0-37.0); MCV 91.9 fL (80.0-100.0); MONOCYTES 8.9 % (1.0-8.0); PLATELET COUNT 210 thou/uL (150-400); POLYS 64.8 % (36.0-66.0); RBC 4.08 mil/uL (4.50-6.00); RDW 14.6 % (10.5-14.5); WBC 10.2 thou/uL (4.0-11.0)
[2021-04-18] MEDS ORDERED: ROSUVASTATIN CA20 MG PO (22:55)
[2021-04-18 23:12] LABS: CREATININE 1.3 mg/dL (0.7-1.3); POTASSIUM 4.3 mmol/L (3.5-5.1)
[2021-04-19 05:55] LABS: CREATININE 1.3 mg/dL (0.7-1.3); POTASSIUM 4.1 mmol/L (3.5-5.1)
[2021-04-19] MEDS ORDERED: DILTIAZEM ER240 MG PO (11:15)
[2021-04-19 16:12] VITALS: BP 121/88
[2021-04-19 16:26] VITALS: BP 116/81
--- NOTE | 2021-04-21 07:16 | EKG ---
[address] [place] [address] ELECTROCARDIOGRAM REPORT Name: CHESTER HOFFMAN Room #: 170-18 DIS IN M.R.#: [id number] Admission: 04/19/21 Attend Phys: Demar Islas MD Discharge: 04/19/21 Date of : 53 Report #: [id number] [facility] Test Date: 2021-04-18 Test Time: 22:24:05 Pat Name: CHESTER HOFFMAN Department: Room: 170 Gender: M Improvement Rn: elida : 1955 Requested By: Cl Hussein Order Number: [id number] MD: Raffi Taylor Measurements Intervals [place] Rate: 123 P: [place]: QRS: -37 QRSD: 81 T: 42 QT: 324 QTc: 464 Interpretive Statements Atrial fibrillation Ventricular premature complex Left ventricular hypertrophy Abnormal T, consider ischemia, lateral leads Compared to ECG 04/02/2021 12:07:55 Ventricular premature complex(es) now present Left anterior fascicular block no longer present T-wave abnormality still present Possible ischemia still present Electronically Signed On 04-21-2021 7:16:22 REGRINDER OPERATOR by Raffi Taylor [email or web address] <ELECTRONICALLY SIGNED> By: Raffi Taylor MD, FAC 04/21/21 0716 23 23 Raffi Taylor MD, [facility] /EPI
== END 2021-04-19 16:50 | disposition home or self-care (01) | DRG 310 ==
LOC: ER 21:38 → EROBS 04-19 02:02
PROVIDERS: Emergency Medicine; Nurse Practitioner Family; ADMIT Hospitalist; ATTEND Hospitalist
DX: I48.91 Unspecified atrial fibrillation (principal); E78.5 Hyperlipidemia, unspecified; I42.8 Other cardiomyopathies; I10 Essential (primary) hypertension; I25.10 Atherosclerotic heart disease of native coronary artery without angina pectoris; F17.210 Nicotine dependence, cigarettes, uncomplicated; F10.20 Alcohol dependence, uncomplicated; R53.81 Other malaise; Z20.822 Contact with and (suspected) exposure to COVID-19; Z90.81 Acquired absence of spleen; Z90.49 Acquired absence of other specified parts of digestive tract; Z95.5 Presence of coronary angioplasty implant and graft; Z71.6 Tobacco abuse counseling

== ENCOUNTER 2021-05-09 12:07 | Inpatient (IN) | payer OTHER ==
[~2021-05-09] VITALS: Ht 180.3 cm; Wt 99.8 kg
[~2021-05-09 12:07] MED LIST changes: +DILTIAZEM ER240 MG PO
[2021-05-09 12:08] VITALS: BP 142/108
[2021-05-09 12:33] LABS: ABSOLUTE NEUTROPHILS 5.9 thou/uL (1.4-8.2); EOSINOPHILS 1.3 % (0.0-3.0); HEMATOCRIT 38.6 % (42.0-52.0); HEMOGLOBIN 12.7 gm/dL (14.0-18.0); LYMPHOCYTES 26.8 % (24.0-44.0); MCH 30.1 pg (26.0-34.0); MCHC 32.7 g/dL (28.0-37.0); MONOCYTES 4.5 % (1.0-8.0); PLATELET COUNT 162 thou/uL (150-400); POLYS 66.4 % (36.0-66.0); RDW 15.6 % (10.5-14.5); WBC 8.8 thou/uL (4.0-11.0)
[2021-05-09 12:46] LABS: CREATININE 1.7 mg/dL (0.7-1.3); POTASSIUM 3.6 mmol/L (3.5-5.1)
[2021-05-09 12:56] LABS: TOTAL BILIRUBIN 1.6 mg/dL (0.2-1.0)
[2021-05-09 12:59] LABS: MAGNESIUM 0.4 mg/dL (1.8-2.4)
[2021-05-09 15:54] VITALS: BP 131/104
[2021-05-09 17:03] VITALS: BP 131/104
[2021-05-09 17:30] VITALS: BP 149/50
[2021-05-09] MEDS ORDERED: PRILOSEC OTC20 MG PO (17:41)
--- NOTE | 2021-05-09 18:23 | NUR ---
PATIENT ARRIVED TO UNIT WITH MAG RUNNING. DURING ADMISSION ASSESSMENT IT WAS NOTED THAT THE IV INFILTRATED. MAG STOPPED AND DISCONNECTED. PATIENT EATING DINNER AT BEDSIDE AND NEW IV BEING ATTEMPTED.
[2021-05-09 20:19] VITALS: BP 116/92
[2021-05-09 23:45] VITALS: BP 127/82
[2021-05-10 03:25] LABS: BASOPHILS 0.9 % (0.0-2.0); HEMATOCRIT 38.3 % (42.0-52.0); HEMOGLOBIN 12.7 gm/dL (14.0-18.0); LYMPHOCYTES 19.1 % (24.0-44.0); MCH 30.6 pg (26.0-34.0); MCHC 33.2 g/dL (28.0-37.0); MCV 92.2 fL (80.0-100.0); MONOCYTES 7.2 % (1.0-8.0); PLATELET COUNT 153 thou/uL (150-400); POLYS 71.8 % (36.0-66.0); RBC 4.16 mil/uL (4.50-6.00); RDW 15.1 % (10.5-14.5); WBC 8.4 thou/uL (4.0-11.0)
--- NOTE | 2021-05-10 03:45 | NUR ---
PT IS ALERT AND ORIENTED X4. LUNGS ARE CLEAR ON ROOM AIR. COMPLAINED OF HIS TUMMY HURTING AND TUMS GIVEN RESOLVED STOMACHE ISSUES. DENIES ANY CHEST PAIN. DOES HAVE SOME SOB HE REPORTS. PUT HIM ON 2LITERS NASAL CANULA AND PT FELT BETTER. VS STABLE. SLEEPING AFTER ASSESSMENT DONE PER NURSING AT THIS TIME. CALL LIGHT WITHIN REACH IF NEEDS ASSISSTANCE.
[2021-05-10 03:46] LABS: ALBUMIN 2.8 g/dL (3.4-5.0); CALCIUM 7.3 mg/dL (8.5-10.1); CREATININE 1.5 mg/dL (0.7-1.3); POTASSIUM 3.7 mmol/L (3.5-5.1); TOTAL BILIRUBIN 1.3 mg/dL (0.2-1.0); TOTAL PROTEIN 6.8 g/dL (6.4-8.2)
[2021-05-10 04:15] VITALS: BP 109/94
[2021-05-10 08:25] VITALS: BP 115/90
[2021-05-10] MEDS ORDERED: METOPROLOL SUCC50 MG PO (10:38)
[2021-05-10] MEDS ORDERED: CARDIZEM CD120 MG PO (10:39)
[2021-05-10] MEDS ORDERED: B12-FOLIC ACID1 EACH PO (10:43)
[2021-05-10] MEDS ORDERED: VITAMIN B-1100 M2 PO (10:43)
[2021-05-10 12:18] VITALS: BP 115/90
--- NOTE | 2021-05-10 12:43 | NUR ---
Pt was discharged at 1230. Pt was A&0x4, VS stable and afebrile. No complaints of pain. Pt was provided with discharge education and reminders for f/u appointments. Pt stated understanding discharge education and intention to go to f/u appointments. Son was at bedside with questions about new medications. Education was provided. No current concerns.
== END 2021-05-10 13:54 | disposition home or self-care (01) | DRG 292 ==
LOC: ER 12:07 → EROBS 13:58 → 2N 16:34
PROVIDERS: Emergency Medicine; Nurse Practitioner; ADMIT Hospitalist; ATTEND Hospitalist
DX: I13.0 Hypertensive heart and chronic kidney disease with heart failure and stage 1 through stage 4 chronic kidney disease, or unspecified chronic kidney disease (principal); N17.9 Acute kidney failure, unspecified; I48.91 Unspecified atrial fibrillation; I42.8 Other cardiomyopathies; I50.9 Heart failure, unspecified; E78.5 Hyperlipidemia, unspecified; E83.42 Hypomagnesemia; F17.210 Nicotine dependence, cigarettes, uncomplicated; Z20.822 Contact with and (suspected) exposure to COVID-19; N18.9 Chronic kidney disease, unspecified; I25.10 Atherosclerotic heart disease of native coronary artery without angina pectoris; E03.8 Other specified hypothyroidism; F10.20 Alcohol dependence, uncomplicated; Z90.81 Acquired absence of spleen; Z90.49 Acquired absence of other specified parts of digestive tract; Z95.5 Presence of coronary angioplasty implant and graft; Z91.14 Patient's other noncompliance with medication regimen; Z71.6 Tobacco abuse counseling
CPT/HCPCS: 10081

== ENCOUNTER → 2021-06-17 | Outpatient (CLI) | payer OTHER ==
[~2021-06-17] MED LIST changes: +B12-FOLIC ACID1 EACH PO; +CARDIZEM CD120 MG PO
== END ==
LOC: SJCVC 08:28
PROVIDERS: ATTEND Internal Medicine Cardiovascular Disease
DX: E83.42 Hypomagnesemia (principal); I25.10 Atherosclerotic heart disease of native coronary artery without angina pectoris; I10 Essential (primary) hypertension; I48.91 Unspecified atrial fibrillation; I42.9 Cardiomyopathy, unspecified; E78.00 Pure hypercholesterolemia, unspecified; Z72.0 Tobacco use; Z79.899 Other long term (current) drug therapy; Z72.89 Other problems related to lifestyle

== ENCOUNTER → 2021-06-23 | Outpatient (CLI) | payer OTHER ==
--- NOTE | 2021-06-23 09:28 | TEE ---
[facility] [place] [address] TRANSESOPHAGEAL ECHOCARDIOGRAM Name: CHESTER HOFFMAN Room #: REG OXANA Cohen#: [id number] Admission: 06/23/21 Attend Phys: Shamar Harmon MD Discharge: Date of : 53 Report #: [id number] THIS REPORT FOR: cc: FAM - No family physician/PCP FAM - No family physician/PCP Juan David Singh MD [facility] ~ APPROVED REPORT Study performed: 06/23/2021 08:13:42 EXAM: Transesophageal Echocardiogram with Doppler and cardioversion Patient Location: Out-Patient Room #: 9 Status: routine BSA: 2.18 HR: 110 bpm BP: 149/90 mmHg Rhythm: Atrial Fibrillation Other Information Study Quality: Good Indications Atrial Fibrillation Echo Enhancing Agent Indication: Rule out Shunt Agent(s) / Amount(s) Used: Agitated Saline 7 cc Procedure After obtaining informed consent, patient underwent transesophageal echo in the [facility]. Type of Sedation : Conscious Sedation Sedation was administered by Nurse. Sedation start time: 824 Case end Time: 836 Sedation was achieved intravenously with: Versed (4mg) Fentanyl (100mcg) Transesophageal probe was inserted and advanced into esophagus without difficulty by Juan David Singh MD. Echo enhancement indication: R/O Septal defect. Echo enhancement agent administered: Agitated Saline The NAMRATA was performed without complications. Synchronized Cardioversion attempted: at 120 joules X 2 and 150 [facility] [address] [place] [address] TRANSESOPHAGEAL ECHOCARDIOGRAM Name: CHESTER HOFFMAN Room #: REG FLYNN CohenElieser#: [id number] Admission: 06/23/21 Attend Phys: Shamar Harmon Discharge: Date of : 53 Report #: [id number] joules X 1 Rhythm following Synchronized Cardioversion: Brief sinus follow by recurrent atrial fibrillation Throughout the procedure, the blood pressure, pulse oximetry, cardiac rhythm, and rate were monitored. The patient tolerated the procedure without adverse effects. Recovery from conscious sedation was uneventful and vital signs were stable. Left Ventricle The left ventricle is normal size. There is normal left ventricular wall thickness. Left ventricular ejection fraction is severely decreased. LVEF is 25%. Right Ventricle The right ventricle is normal size. The right ventricular systolic function is normal. Atria Left atrium is dilated. No thrombus is visualized in the left atrium or appendage. Small PFO is noted by color flow mapping Right atrium is dilated. Aortic Valve The aortic valve is trileaflet, mildly sclerotic. Mild aortic regurgitation. There is no aortic valvular stenosis. Mitral Valve The mitral valve is normal in structure. Mild mitral regurgitation. No evidence of mitral valve stenosis. Tricuspid Valve The tricuspid valve is normal in structure. Mild tricuspid regurgitation. Pulmonic Valve The pulmonary valve is normal in structure. There is no pulmonic valvular regurgitation. Great Vessels The aortic root is normal in size. The ascending aorta is normal in size. IVC is normal in size and collapses >50% with inspiration. Pericardium There is no pericardial effusion. [facility] [address] [place] [address] TRANSESOPHAGEAL ECHOCARDIOGRAM Name: CHESTER HOFFMAN Room #: REG FLYNN Monique#: [id number] Admission: 06/23/21 Attend Phys: Shamar Harmon Discharge: Date of : 53 Report #: [id number] Critical Notification Physician Notified Date: 06/23/2021 <Conclusion> Left ventricular ejection fraction is severely decreased. LVEF is 25%. Both atria are dilated. No thrombus is visualized in the left atrium or appendage. Small PFO is noted by color flow mapping The aortic valve is trileaflet, mildly sclerotic. Mild aortic regurgitation, no stenosis. The mitral valve is normal in structure. Mild mitral regurgitation. There is no pericardial effusion. Brief yazidi of sinus rhythm after several synchronous shocks, then recurrent atrial fibrillation <ELECTRONICALLY SIGNED> By: Juan David Singh MD, FACC 06/23/21926 6 6 Juan David Singh MD, FACC /INF
--- NOTE | 2021-06-23 11:04 | NUR ---
JOHNIE CALLED WITH VO FOR 2GMS MAG SULFATE PER DR. ALVES DUE TO LOW MAGNESIUM. ORDERS REPEATED BACK AND FILLED NOTED.
--- NOTE | 2021-06-23 11:35 | NUR ---
PT RESTING COMFRORTABLE A/OX3 WITH NO C/O OR REQUEST. SISTER AT BEDSIDE.
== END | disposition home or self-care (01) ==
LOC: CATH 06:29
PROVIDERS: ATTEND Internal Medicine Cardiovascular Disease
DX: I48.91 Unspecified atrial fibrillation (principal); I08.3 Combined rheumatic disorders of mitral, aortic and tricuspid valves; I48.92 Unspecified atrial flutter; I42.9 Cardiomyopathy, unspecified; I25.10 Atherosclerotic heart disease of native coronary artery without angina pectoris; I11.0 Hypertensive heart disease with heart failure; I50.9 Heart failure, unspecified; E78.5 Hyperlipidemia, unspecified; F17.210 Nicotine dependence, cigarettes, uncomplicated; Z98.890 Other specified postprocedural states; Z79.899 Other long term (current) drug therapy